=== PATIENT | female | born 1995 ===

== ENCOUNTER 2017-11-05 14:09 | Emergency (ER) | payer OTHER ==
[2017-11-05 14:21] VITALS: BP 118/77; PULSE 92; RESP 16; TEMP 97.6; O2SAT 98
--- NOTE | 2017-11-05 15:36 | C.PDOC ---
History Of Present Illness 21 yr old female presents to the ER stating for the past 5 days she has been experiencing headache. Patient states the pain is constant and starts from back of the neck radiating to the front. Patient reports taking Tylenol and Motrin with no relief. Patient denies head injury, fever, vision changes, nausea, vomiting, weakness or numbness. Time Seen by Provider: 11/05/17 14:30 Chief Complaint (Nursing): Headache History Per: Patient History/Exam Limitations: no limitations Onset/Duration Of Symptoms: Days (5) Past Medical History Reviewed: Historical Data, Nursing Documentation, Vital Signs Vital Signs: Last Vital Signs Temp 97.6 F 11/05/17 14:18 Pulse 92 H 11/05/17 14:18 Resp 16 11/05/17 14:18 BP 118/77 11/05/17 14:18 Pulse Ox 98 11/05/17 15:43 Family History: States: No Known Family Hx - Social History Hx Alcohol Use: No Hx Substance Use: No - Immunization History Hx Tetanus Toxoid Vaccination: No Hx Influenza Vaccination: No Hx Pneumococcal Vaccination: No Review Of Systems Except As Marked, All Systems Reviewed And Found Negative. Constitutional: Negative for: Fever Eyes: Negative for: Vision Change Gastrointestinal: Negative for: Nausea, Vomiting Neurological: Positive for: Headache (Radiating from back of neck to front of head). Negative for: Weakness, Numbness Physical Exam - Physical Exam Appears: Non-toxic, No Acute Distress Skin: Warm, Dry, No Rash Head: Atraumatic, Normacephalic Eye(s): bilateral: Normal Inspection, PERRL, EOMI Oral Mucosa: Moist Neck: Normal ROM, Supple Chest: Symmetrical, No Tenderness Cardiovascular: Rhythm Regular, No Friction Rub, No Murmur Respiratory: Normal Breath Sounds, No Rales, No Rhonchi, No Stridor, No Wheezing Gastrointestinal/Abdominal: Soft, No Tenderness Extremity: Normal ROM, No Swelling Neurological/Psych: Oriented x3, Normal Speech, Normal Motor Gait: Steady ED Course And Treatment O2 Sat by Pulse Oximetry: 98 (RA) Pulse Ox Interpretation: Normal Medical Decision Making Medical Decision Making: PLAN: * Flexeril PO * Reglan IM * Toradol IM On re-exam, the patient reports improvement of symptoms. Lungs are CTA, heart is RRR, Abdomen is soft, non-tender and tolerating PO well. Ambulatory in the ED with steady gait. Follow up with the medical doctor within 1-2 days. Return if worsened. Disposition - Disposition Referrals: [facility] at [facility] [Outside] Disposition: HOME/ ROUTINE Disposition Time: 15:34 Condition: GOOD Additional Instructions: Follow up with the medical doctor within 1-2 days. Return if worsened Prescriptions: Cyclobenzaprine [Cyclobenzaprine HCl] 10 mg PO BID PRN #20 tab PRN Reason: Muscle Spasm Metoclopramide [Reglan] 1 tab PO TID PRN #25 tab PRN Reason: Nausea/Vomiting Instructions: Migraine Headache (ED) Forms: [employer] (Slovenian) - Clinical Impression Clinical Impression: Headache, Migraine - PA / OUTREACH REPRESENTATIVE / Resident Statement MD/DO has reviewed & agrees with the documentation as recorded. - Scribe Statement The provider has reviewed the documentation as recorded by the Scribe Amie Chavis All medical record entries made by the Scribe were at my direction and personally dictated by me. I have reviewed the chart and agree that the record accurately reflects my personal performance of the history, physical exam, medical decision making, and the department course for this patient. I have also personally directed, reviewed, and agree with the discharge instructions and disposition.
== END 2017-11-05 15:48 | disposition home or self-care (01) ==
LOC: C.ER 14:09
DX: G43.909 Migraine, unspecified, not intractable, without status migrainosus (principal)
CPT/HCPCS: 96372; 99283; J1885; J2765

== ENCOUNTER 2018-07-01 11:11 | Emergency (ER) | payer OTHER ==
[2018-07-01 11:17] VITALS: TEMP 97.6
--- NOTE | 2018-07-01 12:08 | C.PDOC ---
History Of Present Illness 22 year old female patient presents to the ER with c/o of left breast pain for the past 4 days. Patient states she went into a walk-in clinic to exam her breast and they referred her to the ER. Patient denies fever and nipple discharge. Her LNMP was in the beginning of May 2018. Time Seen by Provider: 07/01/18 11:22 Chief Complaint (Nursing): Breast Problem History Per: Patient History/Exam Limitations: no limitations Onset/Duration Of Symptoms: Days (x4) Current Symptoms Are (Timing): Still Present Past Medical History Reviewed: Historical Data, Nursing Documentation, Vital Signs Vital Signs: Last Vital Signs Temp 97.6 F 07/01/18 11:15 Pulse 98 H 07/01/18 11:15 Resp 16 07/01/18 11:15 BP 116/75 07/01/18 11:15 Pulse Ox 97 07/01/18 12:22 Family History: States: No Known Family Hx - Social History Hx Alcohol Use: No Hx Substance Use: No - Immunization History Hx Tetanus Toxoid Vaccination: No Hx Influenza Vaccination: No Hx Pneumococcal Vaccination: No Review Of Systems Except As Marked, All Systems Reviewed And Found Negative. Constitutional: Negative for: Fever Skin: Negative for: Other (nipple discharge) Physical Exam - Physical Exam Appears: Non-toxic, No Acute Distress Skin: Normal Color, Warm, Dry Head: Atraumatic, Normacephalic Chest: Deformity, No Tenderness, Other (Palpable tender mass outer quadrant of left breast; no erythema, Lymphadenopathy, warmth, swelling, or discharge.) Gastrointestinal/Abdominal: Soft, No Tenderness Back: No CVA Tenderness Extremity: Normal ROM (x4) Neurological/Psych: Oriented x3, Normal Speech Gait: Steady ED Course And Treatment O2 Sat by Pulse Oximetry: 97 (RA) Pulse Ox Interpretation: Normal - CT Scan/US Breast US Other Rad Studies (CT/US): Read By Radiologist, Radiology Report Reviewed CT/US Interpretation: Accession No. : [id number]. Patient Name / ID : PHAM ARAGON / [id number]. Exam Date : 07/01/2018 12:30:34 ( Approved ). Study Comment : Sex / Age : F / 22Y. Creator : Fiordaliza Cornejo MD. Dictator : Fiordaliza Cornejo MD. Hydraulic Specialist : Prn Occupational Therapist : Fiordaliza Cornejo MD. Approver2 : Report Date : 07/01/2018 13:27:11. My Comment : . Date of service: 07/01/2018. PROCEDURE: Limited left breast ultrasound. HISTORY: outer quadrant palpable tender mass, 2 o'clock. COMPARISON: None. TECHNIQUE : Targeted ultrasound of the left breast was performed at the site of clinically palpable lump. FINDINGS: There is dense background echotexture. At 3 o'clock position 4 cm from the nipple and corresponding to the site of clinically palpable lump, there is a 3.9 x 0.8 x 2.6 cm well-circumscribed ovoid hypoechoic area with smooth margins, wider than taller without central flow on color Doppler imaging. No suspicious solid mass or fluid collection. No evidence for abscess. IMPRESSION: Findings are most compatible with focal mastitis at 3 o'clock position 4 cm from the nipple. Short-term follow-up ultrasound of the medical management is recommended to ensure complete resolution. BIRADS 3 Probably Benign. Recommendation: Short-interval 6-month follow-up Progress Note: Impression: left breast pain. Plans: -- Ibuprofen. -- test. -- US left breast. test results: (-) '. Reassess: Patient is resting comfortably. Tolerating PO. Disposition - Disposition Referrals: [facility] at [facility] [Outside] Gabby Wong MD [Staff Provider] - Disposition: HOME/ ROUTINE Disposition Time: 13:41 Condition: STABLE Additional Instructions: Follow up in Clinic and with general sap ppm consultant . Return to ED if feel worse. Prescriptions: Cephalexin [Keflex] 500 mg PO Q6 #28 cap Ibuprofen [Motrin Tab] 400 mg PO Q8 #30 tab Instructions: Breast Care for the Non-breast Feeding Woman (ED) Forms: [employer] (Filipino) - Clinical Impression Clinical Impression: Pain of breast - PA / BRASS MOLDER / Resident Statement /DO has reviewed & agrees with the documentation as recorded. - Scribe Statement The provider has reviewed the documentation as recorded by the Kia Ricci Do All medical record entries made by the Deeibty were at my direction and personally dictated by me. I have reviewed the chart and agree that the record accurately reflects my personal performance of the history, physical exam, medical decision making, and the department course for this patient. I have also personally directed, reviewed, and agree with the discharge instructions and disposition.
--- NOTE | 2018-07-01 13:28 | US ---
Date of service: 07/01/2018 PROCEDURE: Limited left breast ultrasound HISTORY: outer quadrant palpable tender mass, 2 o'clock COMPARISON: None TECHNIQUE: Targeted ultrasound of the left breast was performed at the site of clinically palpable lump. FINDINGS: There is dense background echotexture. At 3 o'clock position 4 cm from the nipple and corresponding to the site of clinically palpable lump, there is a 3.9 x 0.8 x 2.6 cm well-circumscribed ovoid hypoechoic area with smooth margins, wider than taller without central flow on color Doppler imaging. No suspicious solid mass or fluid collection. No evidence for abscess. IMPRESSION: Findings are most compatible with focal mastitis at 3 o'clock position 4 cm from the nipple. Short-term follow-up ultrasound of the medical management is recommended to ensure complete resolution. BIRADS 3 Probably Benign Recommendation: Short-interval 6-month follow-up
[2018-07-01 13:56] VITALS: BP 108/70; PULSE 67; RESP 18
[2018-07-01 21:24] VITALS: O2SAT 97
== END 2018-07-01 13:56 | disposition home or self-care (01) ==
LOC: C.ER 11:11
DX: N64.4 Mastodynia (principal)

== ENCOUNTER 2018-08-21 11:28 | Emergency (ER) | payer OTHER ==
[2018-08-21 11:54] VITALS: RESP 18; TEMP 98.7
--- NOTE | 2018-08-21 12:28 | RAD ---
Date of service: 08/21/2018 PROCEDURE: Radiographs of the Left Shoulder HISTORY: s/p fall - r/o fx COMPARISON: No prior. FINDINGS: BONES: Bone alignment and mineralization are normal. There is no acute displaced fracture or bone destruction. JOINTS: Normal. Glenohumeral and acromioclavicular joints preserved. SOFT TISSUES: Normal. OTHER FINDINGS: None. IMPRESSION: No acute fracture or dislocation.
[2018-08-21 12:51] VITALS: BP 121/72; PULSE 68; O2SAT 97
--- NOTE | 2018-08-21 16:41 | C.PDOC ---
History Of Present Illness 22 year old female presents to the emergency department with complaints of left shoulder pain. Patient states that she fell backwards five days ago, but denies hitting head or LOC. Patient reports a decreased range of motion to the left arm but denies numbness or other complaints. Chief Complaint (Nursing): Upper Extremity Problem/Injury History Per: Patient History/Exam Limitations: no limitations Onset/Duration Of Symptoms: Days (5) Current Symptoms Are (Timing): Still Present Quality: "Pain" Past Medical History Reviewed: Historical Data, Nursing Documentation, Vital Signs Vital Signs: Last Vital Signs Temp 98.7 F 08/21/18 11:53 Pulse 68 08/21/18 12:51 Resp 18 08/21/18 12:51 BP 121/72 08/21/18 12:51 Pulse Ox 97 08/21/18 16:44 - Medical History PMH: No Chronic Diseases Surgical History: No Surg Hx Family History: States: No Known Family Hx - Social History Hx Alcohol Use: No Hx Substance Use: No - Immunization History Hx Tetanus Toxoid Vaccination: No Hx Influenza Vaccination: No Hx Pneumococcal Vaccination: No Review Of Systems Except As Marked, All Systems Reviewed And Found Negative. Musculoskeletal: Positive for: Shoulder Pain (left) Neurological: Negative for: Weakness, Numbness Physical Exam - Physical Exam Appears: Non-toxic, No Acute Distress Skin: Warm, Dry Head: Atraumatic, Normacephalic Eye(s): bilateral: Normal Inspection Neck: Normal, Supple Cardiovascular: Rhythm Regular, No Murmur Respiratory: Normal Breath Sounds, No Rales, No Rhonchi, No Wheezing Extremity: Normal ROM (decreased range of motion at the left shoulder), Tenderness (tenderness to the posterior aspect of the left shoulder), No Deformity Pulses: Left Brachial: Normal, Right Brachial: Normal Neurological/Psych: Oriented x3, Normal Speech, Normal Cognition ED Course And Treatment O2 Sat by Pulse Oximetry: 97 (RA) Pulse Ox Interpretation: Normal - Other Rad XR Left Shoulder X-Ray: Viewed By Me, Read By Radiologist Interpretation: No acute fractures or dislocations. Progress Note: Plan: Tylenol 650mg PO. XR Left Shoulder Disposition - Disposition Referrals: [facility] [Outside] [facility] [Outside] Disposition: HOME/ ROUTINE Disposition Time: 12:30 Condition: GOOD Additional Instructions: MARGO NATH, thank you for letting us take care of you today. Your provider was Laron Prabhakar DO and you were treated for FALL/ARM PAIN. The emergency medical care you received today was directed at your acute symptoms. If you were prescribed any medication, please fill it and take as directed. It may take several days for your symptoms to resolve. Return to the Emergency Department if your symptoms worsen, do not improve, or if you have any other problems. Please contact your doctor or call one of the physicians/clinics you have been referred to that are listed on the Patient Visit Information form that is included in your discharge packet. Bring any paperwork you were given at discharge with you along with any medications you are taking to your follow up visit. Our treatment cannot replace ongoing medical care by a primary care provider outside of the emergency department. Thank you for allowing the [facility] team to be part of your care today. Follow up with the clinic this week for re-evaluation and further management. Prescriptions: Ibuprofen [Motrin] 600 mg PO Q6 PRN #20 tab PRN Reason: Pain, Moderate (4-7) Instructions: Shoulder Sprain (DC) Forms: [employer]oco (Khmer) - Clinical Impression Clinical Impression: Shoulder sprain - Scribe Statement The provider has reviewed the documentation as recorded by the Scribe (Bon Colemanvi) Provider Attestation: All medical record entries made by the Scribe were at my direction and personally dictated by me. I have reviewed the chart and agree that the record accurately reflects my personal performance of the history, physical exam, medical decision making, and the department course for this patient. I have also personally directed, reviewed, and agree with the discharge instructions and disposition.
== END 2018-08-21 12:52 | disposition home or self-care (01) ==
LOC: C.ER 11:28
DX: S43.402A Unspecified sprain of left shoulder joint, initial encounter (principal); W18.30XA Fall on same level, unspecified, initial encounter

== ENCOUNTER 2019-03-21 22:14 | Emergency (ER) | payer SELFPAY ==
[2019-03-21 22:43] VITALS: BP 108/70; PULSE 83; RESP 18; TEMP 97.6; O2SAT 98
[2019-03-21] MEDS ORDERED: cefTRIAXone (Rocephin) 250 mg Inj IM STA (23:38)
[2019-03-21 23:54] LABS: SQUAMOUS EPITHIAL 2 /hpf (0-5); URINE BILIRUBIN NEGATIVE (NEGATIVE); URINE BLOOD NEGATIVE (NEGATIVE); URINE CLARITY Clear (Clear); URINE COLOR Straw (YELLOW); URINE GLUCOSE (UA) NORMAL (Normal); URINE LEUKOCYTE ESTERASE NEG Leu/uL (Negative); URINE PROTEIN NEGATIVE (NEGATIVE); URINE UROBILINOGEN NORMAL mg/dL (0.2-1.0)
--- NOTE | 2019-03-22 00:10 | C.PDOC ---
History Of Present Illness 23 year old female presents to the ED c/o vaginal discharge for the past 2 months. Patient reports she recently lost her virginity 3 days ago, however the discharge was present before she had intercourse. Patient also c/o lower abdominal pressure/fullness. Patient states her LMP was 2 weeks ago. Patient denies fever, chills, nausea, vomit, diarrhea, rash, vaginal bleeding. Time Seen by Provider: 03/21/19 22:47 Chief Complaint (Nursing): Female Genitourinary History Per: Patient History/Exam Limitations: clinical condition Onset/Duration Of Symptoms: Days Current Symptoms Are (Timing): Still Present Quality Of Discomfort: "Pain" Associated Symptoms: denies: Nausea, Vomiting, Diarrhea, Constipation, Urinary Symptoms Recent travel outside of the [place]: No Additional History Per: Patient Abnormal Vaginal Bleeding: No Last Menstral Period: 2 weeks ago Past Medical History Reviewed: Historical Data, Nursing Documentation, Vital Signs Vital Signs: Last Vital Signs Temp 97.6 F 03/21/19 22:39 Pulse 83 03/21/19 22:39 Resp 18 03/21/19 22:39 BP 108/70 03/21/19 22:39 Pulse Ox 98 03/21/19 22:39 Primary Care Physician: Non [facility] Provider - Medical History PMH: No Chronic Diseases Surgical History: No Surg Hx Family History: States: Unknown Family Hx - Social History Hx Alcohol Use: No Hx Substance Use: No - Immunization History Hx Tetanus Toxoid Vaccination: No Hx Influenza Vaccination: No Hx Pneumococcal Vaccination: No Review Of Systems Constitutional: Negative for: Fever, Chills, Weakness Eyes: Negative for: Redness ENT: Negative for: Mouth Swelling Respiratory: Negative for: Cough, Shortness of Breath Gastrointestinal: Positive for: Abdominal Pain. Negative for: Nausea, Vomiting, Diarrhea Genitourinary: Positive for: Vaginal Discharge Musculoskeletal: Negative for: Back Pain Skin: Negative for: Rash Neurological: Negative for: Weakness, Numbness, Headache, Dizziness Physical Exam - Physical Exam Appears: Well, Non-toxic, No Acute Distress Skin: Normal Color, Warm, No Rash Head: Atraumatic, Normacephalic Eye(s): bilateral: Normal Inspection (no scleral icterus), PERRL, EOMI Oral Mucosa: Moist Neck: Normal ROM, Supple Chest: Symmetrical Respiratory: No Accessory Muscle Use, Other (normal inspiratory effort) Gastrointestinal/Abdominal: Soft, No Distention Back: Other (walking upright steady gait) Pelvic: Vaginal Discharge (whitish, no fishy odor), Cervical Motion Tenderness, Adnexal Tenderness (bilaterally), Other (Chaperoned by female RN) Extremity: Normal ROM, No Tenderness, No Swelling Neurological/Psych: Oriented x3, Normal Speech, Normal Cognition ED Course And Treatment O2 Sat by Pulse Oximetry: 98 (ON RA) Pulse Ox Interpretation: Normal Medical Decision Making Medical Decision Making: Plan: * Doryx 100 mg PO * Rocephin 250 mg IM * UA * Cultures patient was diagnosed with PID, treated empirically, cultures collected. Patient given MEDIA PLANNER information for a follow up. Disposition Counseled Patient/Family Regarding: Diagnosis, Need For Followup, Rx Given - Disposition Referrals: [facility] [Outside] Disposition: HOME/ ROUTINE Disposition Time: 00:07 Condition: STABLE Prescriptions: Doxycycline Monohydrate 100 mg PO BID 10 Days tablet Instructions: Pelvic Inflammatory Disease (DC) Forms: [employer] (Rwandan), General Discharge Instructions - Clinical Impression Clinical Impression: Pelvic inflammatory disease (PID) - PA / STREETCAR DISPATCHER / Resident Statement MD/DO has reviewed & agrees with the documentation as recorded. - Scribe Statement The provider has reviewed the documentation as recorded by the Scribe Ramsey Krause All medical record entries made by the Deeibe were at my direction and personally dictated by me. I have reviewed the chart and agree that the record accurately reflects my personal performance of the history, physical exam, medical decision making, and the department course for this patient. I have also personally directed, reviewed, and agree with the discharge instructions and disposition.
== END 2019-03-22 00:46 | disposition home or self-care (01) ==
LOC: C.ER 22:14 → SUPCPDRO 22:14 → C.ER 03-22 00:46
DX: N73.9 Female pelvic inflammatory disease, unspecified (principal)
CPT/HCPCS: 81001; 81025; 87070; 87491; 87591; 96372; 99283; J0696

== ENCOUNTER 2019-03-24 18:39 | Emergency (ER) | payer SELFPAY ==
[2019-03-24 19:01] VITALS: O2SAT 100
[2019-03-24 19:02] VITALS: BMI 20.1
--- NOTE | 2019-03-24 19:19 | C.PDOC ---
History Of Present Illness Patient presents with headache and dizziness since yesterday associated with some nausea. This is unlike her usual headaches that normally go away after she sleeps, patient states it got worse after sleeping. Denies vomiting or weakness. Time Seen by Provider: 03/24/19 19:18 Chief Complaint (Nursing): Headache History Per: Patient History/Exam Limitations: no limitations Onset/Duration Of Symptoms: Other (Yesterday) Current Symptoms Are (Timing): Still Present Severity: Moderate Pain Scale Rating Of: 4 Preceeding Symptoms: None Associated Symptoms: Nausea. denies: Vomiting, Extremity Weakness Recent travel outside of the [place]: No Past Medical History Reviewed: Historical Data, Nursing Documentation, Vital Signs Vital Signs: Last Vital Signs Temp 98.2 F 03/24/19 18:57 Pulse 73 03/24/19 18:57 Resp 18 03/24/19 18:57 BP 121/71 03/24/19 18:57 Pulse Ox 100 03/24/19 18:57 Family History: States: No Known Family Hx - Social History Hx Alcohol Use: No Hx Substance Use: No - Immunization History Hx Tetanus Toxoid Vaccination: No Hx Influenza Vaccination: No Hx Pneumococcal Vaccination: No Review Of Systems Constitutional: Negative for: Fever, Chills Cardiovascular: Negative for: Chest Pain, Palpitations Respiratory: Negative for: Cough, Shortness of Breath Gastrointestinal: Positive for: Nausea. Negative for: Vomiting Neurological: Positive for: Headache. Negative for: Weakness, Numbness Physical Exam - Physical Exam Appears: Non-toxic Skin: Warm, Dry Head: Normacephalic Eye(s): bilateral: Normal Inspection, PERRL, EOMI Oral Mucosa: Moist Neck: Trachea Midline, No Midline Cervical Tenderness, No Paracervical Tenderness, Supple Chest: Symmetrical, No Tenderness Cardiovascular: Rhythm Regular Respiratory: No Rales, No Rhonchi, No Wheezing Gastrointestinal/Abdominal: Soft, No Tenderness Extremity: Other (Moves all extremities) Neurological/Psych: Oriented x3, Other (No focal deficit) ED Course And Treatment - Laboratory Results Result Diagrams: 03/24/19 19:35 03/24/19 19:35 O2 Sat by Pulse Oximetry: 100 (room air) Pulse Ox Interpretation: Normal Progress Note: Blood work and urinalysis ordered. Zofran administered. Reevaluation Time: 23:02 Reassessment Condition: Improved Medical Decision Making Medical Decision Making: Upon provider reevaluation patient is feeling better, is medically stable, and requires no further treatment in the ED at this time. Patient will be discharged home with Rx for zofran, naproxen . Counseling was provided and all questions were answered regarding diagnosis and need for follow up with the referred clinic. There is agreement to discharge plan. Return if symptoms persist or worsen. Disposition Counseled Patient/Family Regarding: Studies Performed, Diagnosis, Need For Followup, Rx Given - Disposition Referrals: Lorena Christie MD [Staff Provider] - Disposition: HOME/ ROUTINE Disposition Time: 19:19 Condition: FAIR Additional Instructions: Please return if symptoms recur Prescriptions: Naproxen [Naprosyn] 1 tab PO BID PRN #25 tab PRN Reason: Pain Ondansetron ODT [Zofran ODT] 1 odt PO BID PRN #6 odt PRN Reason: Nausea/Vomiting Instructions: Migraine Headache (DC) Forms: [employer] Connect (Wallisian) - Clinical Impression Clinical Impression: Migraine - Scribe Statement The provider has reviewed the documentation as recorded by the Scribe Stevenson Urias All medical record entries made by the Scribe were at my direction and personally dictated by me. I have reviewed the chart and agree that the record accurately reflects my personal performance of the history, physical exam, medical decision making, and the department course for this patient. I have also personally directed, reviewed, and agree with the discharge instructions and disposition.
[2019-03-24 19:42] LABS: BASO # 0.1 K/uL (0.0-0.2); BASO % 0.8 % (0.0-2.0); EOS # 0.1 K/uL (0.0-0.7); EOS % 1.2 % (0.0-4.0); HEMOGLOBIN 12.9 g/dL (11.0-16.0); LYMPH % 35.7 % (20.0-40.0); MEAN CELL VOLUME 88.3 fL (81.0-99.0); MEAN CORPUSCULAR HEMOGLOBIN 29.2 pg (27.0-31.0); MEAN CORPUSCULAR HGB CONC 33.1 g/dL (33.0-37.0); MEAN PLATELET VOLUME 9.2 fL (7.2-11.7); MONO # 0.9 K/uL (0.0-0.8); MONO % 10.6 % (0.0-10.0); NEUT # 4.4 K/uL (1.8-7.0); NEUT % 51.7 % (50.0-75.0); RBC 4.43 Mil/uL (3.80-5.20); RED CELL DISTRIBUTION WIDTH 12.6 % (11.5-14.5); WHITE BLOOD COUNT 8.5 K/uL (4.8-10.8)
[2019-03-24 19:59] LABS: ALB/GLOB RATIO 1.5 (1.0-2.1); ALT/SGPT 14 U/L (9-52); AST/SGOT 22 U/L (14-36); BLOOD UREA NITROGEN 13 mg/dL (7-17); CALCIUM 9.1 mg/dl (8.6-10.4); GFR NON-AFRICAN AMERICAN > 60
[2019-03-24 20:01] LABS: BARBITURATES, UR NEGATIVE (NEGATIVE); BENZODIAZEPINES, UR NEGATIVE (NEGATIVE); OPIATES, UR NEGATIVE (NEGATIVE); PHENCYCLIDINE, UR NEGATIVE (NEGATIVE)
[2019-03-24 20:19] LABS: HCG,QUALITATIVE URINE NEGATIVE (NEGATIVE)
[2019-03-24 20:27] LABS: SQUAMOUS EPITHIAL 12 /hpf (0-5); URINE BACTERIA RARE (<OCC); URINE BILIRUBIN NEGATIVE (NEGATIVE); URINE BLOOD NEGATIVE (NEGATIVE); URINE CLARITY Hazy (Clear); URINE COLOR Yellow (YELLOW); URINE GLUCOSE (UA) NORMAL (Normal); URINE LEUKOCYTE ESTERASE TRACE Leu/uL (Negative); URINE PROTEIN NEGATIVE (NEGATIVE); URINE UROBILINOGEN NORMAL mg/dL (0.2-1.0)
[2019-03-24 23:33] VITALS: BP 107/59; PULSE 76; RESP 18; TEMP 98.1
--- NOTE | 2019-03-25 11:34 | CT ---
Date of service: 03/24/2019 PROCEDURE: CT HEAD WITHOUT CONTRAST. HISTORY: headache COMPARISON: None available. TECHNIQUE: Axial computed tomography images were obtained through the head/brain without intravenous contrast. Radiation dose: Total exam DLP = 1079.08 mGy-cm. This CT exam was performed using one or more of the following dose reduction techniques: Automated exposure control, adjustment of the mA and/or kV according to patient size, and/or use of iterative reconstruction technique. FINDINGS: HEMORRHAGE: No intracranial hemorrhage. BRAIN: No mass effect or edema. No evidence of atrophy or chronic microvascular change. There are several nodular cortical calcifications bilaterally common most likely the result of prior infectious or inflammatory disease. VENTRICLES: Unremarkable. No hydrocephalus. CALVARIUM: Unremarkable. PARANASAL SINUSES: Unremarkable as visualized. No significant inflammatory changes. MASTOID AIR CELLS: Unremarkable as visualized. No inflammatory changes. OTHER FINDINGS: None. IMPRESSION: No intracranial mass, hemorrhage or evidence of acute infarct. The preliminary findings for this examination were reported by [facility] at 10:53 p.m. on 03/24/2019. There is concurrence of this report with the preliminary findings.
== END 2019-03-24 23:34 | disposition home or self-care (01) ==
LOC: C.ER 18:39
DX: G43.909 Migraine, unspecified, not intractable, without status migrainosus (principal)
CPT/HCPCS: 70450; 80053; 81001; 82948; 84703; 85025; 96374; 96375; 99284; G0480; J1885; J2405